=== PATIENT | female | born 1945 | race Caucasian/White ===

== ENCOUNTER 2023-11-21 16:20 | Outpatient (OUT) | payer MEDICARE, BC, SELFPAY ==
[2023-11-21 16:51] LABS: Basophils Percent Auto 0.3 % (0.2-2.0); Eosinophils Percent Auto 0.1 % (0.9-7.0); Hematocrit 37.3 % (36.0-48.0); Hemoglobin 13.9 g/dL (12.0-16.0); Immature Granulocytes Abs Auto 0.05 10^3/uL (0.00-0.03); Immature Granulocytes Pct Auto 0.5 % (0.0-0.5); Lymphocytes Absolute Auto 1.1 10^3/uL (1.2-3.8); Lymphocytes Percent Auto 11.2 % (20.5-60.0); Mean Corpuscular HGB Conc 37.3 g/dL (29.9-35.2); Mean Corpuscular Hemoglobin 30.6 pg (26.7-34.0); Mean Corpuscular Volume 82.2 fL (81.0-99.0); Mean Platelet Volume 8.7 fL (9.5-13.5); Monocytes Absolute Auto 0.8 10^3/uL (0.3-0.8); Monocytes Percent Auto 8.3 % (1.7-12.0); Neutrophils Absolute Auto 7.6 10^3/uL (1.4-6.5); Neutrophils Percent Auto 79.6 % (43.0-75.0); Platelet Count 378 10^3/uL (150-450); Red Blood Count 4.54 10^6/uL (4.20-5.40); Red Cell Distribution Width 11.4 % (11.0-15.0); White Blood Count 9.5 10^3/uL (4.0-11.0)
[2023-11-22 10:18] LABS: Alanine Aminotransferase 30 U/L (14-59); Albumin Globulin Ratio 1.1; Albumin Level 4.3 g/dL (3.4-5.0); Alkaline Phosphatase 92 U/L (46-116); Anion Gap 16.7; Aspartate Amino Transferase 22 U/L (15-37); BUN Creatinine Ratio 10.3; Bilirubin Total 0.6 mg/dL (0.2-1.0); Calcium 9.5 mg/dL (8.5-10.1); Carbon Dioxide 24.5 mmol/L (21.0-32.0); Chloride 88 mmol/L (98-107); Estimated GFR (African America 46 (>=60); Estimated GFR (Non-African Ame 38 (>=60); Globulin 3.8 g/dL; Glucose 161 mg/dL (74-106); Potassium 3.2 mmol/L (3.5-5.1); Sodium 126 mmol/L (136-145); Total Protein 8.1 g/dL (6.4-8.2)
== END 2023-11-21 16:21 | disposition home or self-care (01) ==
PROVIDERS: PCP Internal Medicine; Visit Provider Physician Assistant
DX: R42 Dizziness and giddiness (principal)
CPT/HCPCS: 36415; 80053; 85025

== ENCOUNTER 2024-04-22 09:48 | Outpatient (OUT) | payer MEDICARE, BC, SELFPAY ==
--- NOTE | 2024-04-22 09:50 | XR_ITS ---
[address] [address] Patient Name: MICHEAL WILKERSON MRN: [id number] date: 1945 Sex: F Assigned Patient Location: [facility] Current Patient Location: Accession/Order Number: [id number] Exam Date: 04/22/2024 10:00 Report Date: 04/23/2024 11:31 At the request of: BROOKLYNN SORIA Procedure: XR DEXA axial skeleton EXAMINATION: XR DEXA axial skeleton HISTORY: Osteopenia, Estrogen Deficiency COMPARISON: DEXA bone densitometry 11/02/2016 TECHNIQUE: Dual-energy X-ray absorptiometry (DXA) was performed. FINDINGS: SPINE ANALYSIS: Average bone mineral density is 1.182 g/cm2. T-score (standard deviation relative to young adult mean): 0.0 . +9.1% change since prior study. HIP ANALYSIS: Lowest bone mineral density is within the right femoral neck, 0.680 g/cm2. T-score (standard deviation relative to young adult mean): -2.6 . -2.3% change since prior study. XR/XR DEXA axial skeleton IMPRESSION: World Health Organization Classification: Osteoporosis - High Fracture Risk FRAX: Cannot be calculated. Pharmacologic treatment recommendations * No uniform recommendation applies to all patients. Management plans must be individualized. * Consider initiating pharmacologic treatment in postmenopausal women and men >= 50 years of age who have the following: Primary fracture prevention: * T-score <= - 2.5 at the femoral neck, total hip, lumbar spine, 33% radius (some uncertainty with existing data) by DXA. * Low bone mass (osteopenia: T-score between - 1.0 and - 2.5) at the femoral neck or total hip by DXA with a 10-year hip fracture risk >= 3% or a 10-year major osteoporosis-related fracture risk >= 20% (i.e., clinical vertebral, hip, forearm, or proximal humerus) based on the [place]-adapted FRAXregistered model. Secondary fracture prevention: * Fracture of the hip or vertebra regardless of BMD [4, 5]. * Fracture of proximal humerus, pelvis, or distal forearm in persons with low bone mass (osteopenia: T-score between - 1.0 and - 2.5). The decision to treat should be individualized in persons with a fracture of the proximal humerus, pelvis, or distal forearm who do not have osteopenia or low BMD [12, 13]. Derick MS, Lucero SL, Julio KL, Janet EM, Jason KG, AJ, Cm ES. The clinician's guide to prevention and treatment of osteoporosis. Osteoporos Int. 2021;33(10):4308-1343. doi: 10.1007/g05289-706-90972-e. Epub 2021Jul 15. Erratum in: Osteoporos Int. 2021Oct 14;: PMID: [id number]; PMCID: [id number]. Electronically authenticated by: BRIDGETTE EVANGELISTA Date: 04/23/2024 11:31
--- OUTSIDE RECORDS SUMMARY | 2024-04-22 09:52 | XMS_ITS | CCD ---
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 #### [facility] [address] [employer] Treatment Plant Operator: Marian Paige [facility] METABOL[facility] 04-18-2024 Albumin [Mass/Vol] 4.2 g/dL Normal 3.6-5.1 [facility] Comment on above: Performed By: #### 1 7306, 496, 7600 #### [facility] [address], [address] [place] [address] [employer] Plant Operator: Parag Minor MD #### [id number], 34546 #### [facility] [phone] [employer] Plant Operator: Marian Paige Albumin/Globulin [Mass ratio] 1.5 {ratio} Normal 1.0-2.5 [facility] Comment on above: Performed By: #### 1 7306, 496, 7600 #### [facility] [address], [address] [place] [address] [employer] Plant Operator: Parag Minor MD #### [id number], 95816 #### [facility] [address] [employer] Treatment Plant Operator: Marian Paige ALP [Catalytic activity/Vol] 57 U/L Normal 37-153 [facility] Comment on above: Performed By: #### 1 7306, 496, 1600 #### [facility] [address], [address] [place] [address] [employer] Treatment Plant Operator: Parag Minor MD #### [id number], 83397 #### [facility] [address] [employer] Treatment Plant Operator: Marian Ballard Flati ALT [Catalytic activity/Vol] 12 U/L Normal 6-29 [facility] Comment on above: Performed By: #### 1 7306, 496, 0700 #### [facility] [address], [address] [place], [place] [phone] [employer] Plant Operator: Parag Minor MD #### 6399, 36324 #### [facility] Waste [employer] Treatment Plant Operator: Marian Scotti AST [Catalytic activity/Vol] 23 U/L Normal 10-35 [facility] Comment on above: Performed By: #### 1 7306, 496, 2719 #### [facility] [address], [address] [place] [address] [employer] Treatment Plant Operator: Parag Minor MD #### 6399, 46071 #### [facility] Waste Water Treatment Plant Operator: Marian Ballard Flati Bilirubin [Mass/Vol] 0.5 mg/dL Normal 0.2-1.2 [facility] Comment on above: Performed By: #### 1 7306, 496, 0993 #### [facility] [address], [address] [place] [address] [employer] Treatment Plant Operator: Parag Minor MD #### [id number], 46129 #### [place] [address] [employer] Operator: Marian Ballard Flati Calcium [Mass/Vol] 9.2 mg/dL Normal 8.6-10.4 [facility] Comment on above: Performed By: #### 1 7306, 496, 5929 #### [facility] [address], [address] [place] [address] [employer] Treatment Plant Operator: Parag Minor MD #### 6399, 31982 #### [facility] [address] [employer] Operator: Marian Ballard Flati Chloride [Moles/Vol] 99 mmol/L Normal 98-110 [facility] Comment on above: Performed By: #### 1 7306, 496, 6500 #### [facility] [address], [address] [place] [address] [employer] Treatment Plant Operator: Parag Minor MD #### 6399, 28813 #### [facility] [phone] [employer] Operator: Marian Scotti CO2 [Moles/Vol] 30 mmol/L Normal 20-32 [facility] Comment on above: Performed By: #### 1 7306, 498, 2314 #### [facility] [address], [address] [place] [address] [employer] Operator: Parag Minor MD #### 6399, 87540 #### [facility] [address] [employer] Operator: Marian Paige Creatinine [Mass/Vol] 1.15 mg/dL High 0.60-1.00 [facility] Comment on above: Performed By: #### 1 7306, 496, 9794 #### [facility] [address], [address] [place] [address] [employer] Operator: Parag Minor MD #### 6399, 64293 #### [facility] [address] [place] [address] [employer] Operator: Marian Paige GFR/1.73 sq M.predicted among non-blacks MDRD (S/P/Bld) [Vol rate/Area] 49 mL/min/{1.73_m2} Low > OR = 60 [facility] Comment on above: Performed By: #### 1 7306, 496, 2799 #### [facility] [address], [address] [place] [address] [employer] Operator: Parag Minor MD #### 6399, 84021 #### [place] [address] [employer] Operator: Marian Scotti Globulin (S) [Mass/Vol] 2.8 g/dL Normal 1.9-3.7 [facility] Comment on above: Performed By: #### 1 7306, 496, 8486 #### [facility] [address], [address] [place] [address] [employer] Operator: Parag Minor MD #### 6399, 08901 #### [place] [address] [employer] Operator: Marian Ballard Flati Glucose [Mass/Vol] 96 mg/dL Normal 65-99 [facility] Comment on above: Result Comment: Fasting reference interval Performed By: #### 1 7306, 496, 7306 #### [facility] [address], [address] [place] [address] [employer] Operator: Parag Minor MD #### 6399, 03049 #### [place] [address] [employer] Operator: Marian Ballard Flati Potassium [Moles/Vol] 5.0 mmol/L Normal 3.5-5.3 [facility] Comment on above: Performed By: #### 1 7306, 496, 4735 #### [facility] [address] [place] [address], [address] [place] [address] [employer] Operator: Parag Minor MD #### 6399, 65813 #### [facility] [address] [employer] Operator: Marian Ballard Flati Protein [Mass/Vol] 7.0 g/dL Normal 6.1-8.1 [facility] Comment on above: Performed By: #### 1 7306, 496, 7600 #### [facility] [address], [address] [place] [address] [employer] Plant Operator: Parag Minor MD #### 6399, 59915 #### [facility] [address] [place], [place] [phone] [employer] Operator: Marian Paige Sodium [Moles/Vol] 134 mmol/L Low 135-146 [facility] Comment on above: Performed By: #### 1 7306, 496, 3000 #### [facility] [address], [address] [place] [address] [employer] Operator: Parag Minor MD #### 6399, 36908 #### [facility] [address] [place] [address] [employer] Operator: Marian Paige Urea nitrogen [Mass/Vol] 14 mg/dL Normal 7-25 [facility] Comment on above: Performed By: #### 1 7306, 496, 7600 #### [facility] [address], [address] [place] [address] [employer] Operator: Parag Minor MD #### [id number], 41846 #### [facility] [address] [place], [place] [address] [employer] Operator: Marian Paige Urea nitrogen/Creatinine [Mass ratio] 12 mg/mg Normal 6-22 [facility] Comment on above: Performed By: #### 1 7306, 496, 7600 #### [facility] [address], [address] [place] [address] [employer] Operator: Parag Minor MD #### 6399, 48201 #### [facility] [address] [place] [phone] [employer] Operator: Marian Paige HEMOGLOBIN A1con 04-18-2024 HEMOGLOBIN A1c 5.6 % of total Hgb Normal <5.7 [facility] Comment on above: Result Comment: For the purpose of screening for the presence of diabetes: <5.7% Consistent with the absence of diabetes 5.7-6.4% Consistent with increased risk for diabetes (prediabetes) > or =6.5% Consistent with diabetes This assay result is consistent with a decreased risk of diabetes. Currently, no consensus exists regarding use of hemoglobin A1c for diagnosis of diabetes in children. According to [place] Diabetes Association (ADA) guidelines, hemoglobin A1c <7.0% represents optimal control in non- diabetic patients. Different metrics may apply to specific patient populations. Standards of Medical Care in Diabetes(ADA). Performed By: #### 1 7306, 496, 7600 #### [facility] [address], [address] [place] [address] [employer] Operator: Parag Minor MD #### 6399, 18551 #### [facility] [address] [place] [address] [employer] Operator: Marian Paige LIPID PANEL, STANDARD 03-22 0-202 Cholesterol [Mass/Vol] 131 mg/dL Normal <200 [facility] Comment on above: Order Comment: FASTI NG:YES FASTING: YES Performed By: #### 1 7306, 496, 2390 #### [facility] [address], [address] [place] [address] [employer] Operator: Parag Minor MD #### 6399, 05638 #### [facility] [address] [place] [address] [employer] Operator: Marian Paige Cholesterol in HDL [Mass/Vol] 45 mg/dL Low > OR = 50 [facility] Comment on above: Order Comment: FASTI NG:YES FASTING: YES Performed By: #### 1 7306, 497, 0820 #### [facility] [address], [address] [place] [address] [employer] Operator: Parag Minor MD #### 6399, 83326 #### [facility] [address] [place] [address] [employer] Operator: Marian Paige Cholesterol in LDL [Mass/Vol] 64 mg/dL Normal [facility] Comment on above: Order Comment: FASTI NG:YES FASTING: YES Result Comment: Refe rence range: <100 Desirable range <100 mg/dL for primary prevention; <70 mg/dL for patients with CHD or diabetic patients with > or = 2 CHD risk factors. LDL-C is now calculated using the Mitul calculation, which is a validated novel method providing better accuracy than the Friedewald equation in the estimation of LDL-C. Arnie JADE et al. ARABELLA. 2013;310(19): 1505-5025 (http://education.[employer]onder [employer]/faq/RLK693) Performed By: #### 1 7306, 496, 7600 #### [facility] [address], [address] [place] [address] [employer] Operator: Parag Minor MD #### 6399, 22304 #### [facility] [address] [place] [address] [employer] Operator: Marian Paige Cholesterol.total/C holesterol in HDL [Mass ratio] 2.9 {ratio} Normal <5.0 [facility] Comment on above: Order Comment: FASTI NG:YES FASTING: YES Performed By: #### 1 7306, 496, 9160 #### [facility] [address], [address] [place] [address] [employer] Operator: Parag Minor MD #### 6399, 93573 #### [facility] [address] [place] [address] [employer] Operator: Marian Paige NON HDL CHOLESTEROL 86 mg/dL (calc) Normal <130 [facility] Comment on above: Order Comment: FASTI NG:YES FASTING: YES Result Comment: For patients with diabetes plus 1 major ASCVD risk factor, treating to a non-HDL-C goal of <100 mg/dL (LDL-C of <70 mg/dL) is considered a therapeutic option. Performed By: #### 1 7306, 496, 7690 #### [facility] [address], [address] [place] [address] [employer] Operator: Parag Minor MD #### 6399, 48907 #### [facility] [address] [place], [place] [phone] [employer] Operator: Marian Paige Triglyceride [Mass/Vol] 138 mg/dL Normal <150 [facility] Comment on above: Order Comment: FASTI NG:YES FASTING: YES Performed By: #### 1 7306, 496, 7600 #### [facility] [address], [address] [place] [address] [employer] Operator: Parag Minor MD #### 6399, 72698 #### [facility] [address] [place] [address] [employer] Operator: Marian Paige TSH W/REFLEX TO FT4on 2024 TSH W/REFLEX TO FT4 0.59 mIU/L Normal 0.40-4.50 [facility] Comment on above: Performed By: #### 1 7306, 496, 0740 #### [facility] [address], [address] [place] [address] [employer] Operator: Parag Minor MD #### 6399, 24777 #### [facility] [address] [place] [address] [employer] Operator: Marian Paige VITAMIN D,25-OH,TOTAL,IAon 0 04-18-2024 VITAMIN D,25-OH,TOTAL,IA 71 ng/mL Normal 30-100 [facility] Comment on above: Result Comment: Kayla min D Status 25-OH Vitamin D: Deficiency: <20 ng/mL Insufficiency: 20 - 29 ng/mL Optimal: > or = 30 ng/mL For 25-OH Vitamin D testing on patients on D2-supplementation and patients for whom quantitation of D2 and D3 fractions is required, the QuestAssureD(TM) 25-OH VIT D, (D2,D3), LC/MS/MS is recommended: order code 69013 (patients >2yrs). See Note 1 Note 1 For additional information, please refer to http://education.Scribz.Softdesk/faq/UWL852 (This link is being provided for informational/ educational purposes only.) Performed By: #### 1 7306, 496, 1270 #### [facility] [place] [address], [address] [place] [address] [employer] Operator: Parag Minor MD #### 6399, 51056 #### [facility] [address] [place] [address] [employer] Operator: Marian Paige XR Knee - left 1 or 2 Viewso n 01-13-2024 Imaging Result: X-rays performed January 09, 2024 Standing AP and LAT of left knee showed surgical position and alignment of prosthetic components without evidence of loosening or wear to the femoral, tibial, or patellar components. The alignment appeared to be anatomic. There was no evidence of accelerated or asymmetric wear to the patellar button or tibial tray. There was no evidence of fracture and/or dislocation. Impression: Stable LT total knee replacement. Carlitos Laird APRN-PLATE MAKER [facility] XR Knee - left 1 or 2 ViewsO rdered By: Shane Ledesma on 01-13-2024 [facility] Work Phone: Urine Cultureon 01-12-2024 Bacteria identified Cx Nom (U) Urine Culture Results >100,000 col/ml Mixed Bacterial Skin Contaminants 2 Days PERFORMED BY: [place] [address] PATHOLOGIST MOLDING MACHINE OPERATOR JENNIFER JOHNSON M.D. Normal [facility] Comment on above: Performed By: #### C UU #### [address] XR Knee - left 1 or 2 Viewso n 01-09-2024 Radiology Study observation (narrative) [facility] ALL CBC WITH AUTO DIFFon BASOPHILS ABSOLUTE AUTO 0.0 [facility] Basophils/100 WBC (Bld) 0.3 % 0.2 - 2.0 % [facility] Eosinophils/100 WBC (Bld) 0.1 % Low 0.9 - 7.0 % [facility] Erythrocyte distribution width (RBC) [Ratio] 11.4 % 11.0 - 15.0 % [facility] Hematocrit (Bld) [Volume fraction] 37.3 % 36.0 - 48.0 % [facility] Hemoglobin (Bld) [Mass/Vol] 13.9 g/dL 12.0 - 16.0 g/dL [facility] IMMATURE GRANULOCYTES ABS AUTO 0.05 High [facility] Immature granulocytes/100 WBC (Bld) 0.5 % 0.0 - 0.5 % [facility] Interpretation and review of laboratory results Abnormal [facility] LYMPHOC[facility] ABSOLUTE AUTO 1.1 Low [facility] Lymphocytes/100 WBC (Bld) 11.2 % Low 20.5 - 60.0 % [facility] MCH (RBC) [Entitic mass] 30.6 pg 26.7 - 34.0 pg [facility] MCHC (RBC) [Mass/Vol] 37.3 g/dL High 29.9 - 35.2 g/dL [facility] MCV (RBC) [Entitic vol] 82.2 fL 81.0 - 99.0 fL [facility] MONOCYTES ABSOLUTE AUTO 0.8 [facility] Monocytes/100 WBC (Bld) 8.3 % 1.7 - 12.0 % [facility] NEUTROPHILS ABSOLUTE AUTO 7.6 High [facility] Neutrophils/100 WBC (Bld) 79.6 % High 43.0 - 75.0 % [facility] Platelet mean volume (Bld) [Entitic vol] 8.7 fL Low 9.5 - 13.5 fL [facility] EO # 0.0 [facility]T 378 [facility] RBC 4.54 [facility] TB[facility] WBC 9.5 [facility] Influenza virus B Ag [Presen ce] in Upper respiratory specimen by Rapid immunoassayon 11-10-2023 FLUBV Ag IA.rapid Ql (Nph) Negative [facility] No Panel Informationon 11-09 Influenza Type A (Rapid) Negative [facility] POC SARS CoV-2 Antigen Positive [facility] COVID + FLU Quick Testingon 07-20-2022 SARS-CoV-2 (COVID-19) RNA JOMAR+probe Ql (Unsp spec) Negative [facility] Other COVID + FLU Quick Testing Negative [facility] Other XR Bone Density (DEXA)on XR Bone Density (DEXA) EXAM: Dual Femur Bone Density FINDINGS: Dual Femur bone density obtained with a [employer] whole body system: [facility] Total(g/cm2)(%)T-Scor e(%)Z-Score Mean0.74314-2.495-0.3 Impression: The mean BMD and corresponding T-score indicated above indicate Low Bone Mass (Osteopenia) and places the patient at a mild to moderate increased risk for fracture. There may be a future risk of developing osteoporosis. Findings are borderline osteoporosis. EXAM: AP Lumbar Bone Density FINDINGS: AP Spine bone density obtained with a [employer] whole body system: [facility]-Matched Total(g/cm2)(%)T-Scor e(%)Z-Score L1-[id number]. 7 Impression: The mean BMD and corresponding T-score indicated above indicate Low Bone Mass (Osteopenia) and places the patient at a mild to moderate increased risk for fracture. There may be a future risk of developing osteoporosis. Comment: The T-score is the primary focus of the interpretation of a patient???s bone mineral density measurement. The T-score is the number of standard deviations an individual is above or below the mean value for a young female having normal bone mass. The WHO defines osteoporosis based on the T-score value??? +1.0 to ???0.9: Normal bone mass -1.0 to -2.5: Osteopenia and thus may be at future risk of fracture -2.6 to ???5: Osteoporosis and ???at significantly increased risk of fracture??? A Z-Score of -2.0 or lower is defined as ???below the expected range for age??? and a Z-Score above -2.0 is ???within the expected range for age.??? Osteoporosis cannot be diagnosed in men under the age of 50 on the basis of BMD alone. Per 2019 ISCD guidelines, Z-Scores (not T-Scores) are preferred when reporting data in premenopausal females and males less than 50 years of age. Report reported and signed by Sherman Stein on 03/22/2022 0955 Normal [facility] MG MAMM SCREEN 3D SHYANN CADon 03-11-2021 MG MAMM SCREEN 3D SHYANN CAD Patient: CHELSY GRAVES Exam Date: 03/11/2021 : 1945 Gender:F Ordering : DR DAVID BOLES M.D. Admission #: [id number] Family : Order #: [id number] CLICK HERE TO VIEW EXAM RADIOLOGY REPORT PROCEDURE: MAMMOGRAM SCREENING 3D BILATERAL CAD COMPARISON: MG MAMM SCREEN SHYANN W CAD, 11/28/2018. MG MAMM SCREEN SHYANN W CAD, 03/10/2020. INDICATIONS: Screening mammography Calculator Name NCI Breast Cancer Risk Assessment Tool 5 Year Breast Cancer Risk 5.50% Lifetime Breast Cancer Risk 11.60% Personal Breast Cancer No Personal Ovarian Cancer No Treatments None Family Cancers Father with bladder cancer at age 60; Sister with breast cancer at age 65. LOCATION: [facility] BREAST COMPOSITION: Heterogeneously dense,which may obscure small masses. FINDINGS: DIAGNOSTIC CATEGORY 2--BENIGN FINDING: RIGHT BREAST: No significant suspicious finding. No significant change has occurred. LEFT BREAST: No significant suspicious finding. Scattered benign-appearing calcifications are present. No significant change has occurred. RECOMMENDATIONS: ROUTINE MAMMOGRAM AND CLINICAL EVALUATION IN 12 MONTHS. PLEASE NOTE: A NORMAL MAMMOGRAM DOES NOT EXCLUDE THE POSSIBILITY OF BREAST CANCER. A CLINICALLY SUSPICIOUS PALPABLE LUMP SHOULD BE BIOPSIED. Dictated by: Bridgette Del Angel M.D. on 03/11/2021 at 15:23 Approved by: Bridgette Del Angel M.D. on 03/11/2021 at 15:27 Normal [facility] Covid-19 PCR (CVDTB)on 12-18 SARS-CoV-2 (COVID-19) RNA JOMAR+probe Ql (Unsp spec) Not detected Normal NOT DETECTED [facility] Comment on above: Result Comment: This test is not yet approved or cleared by the [place] FDA. When there are no FDA-approved or cleared tests available, and other criteria are met, FDA can make tests available under an emergency access mechanism called an Emergency Use Authorization (EUA). The EUA for this test is supported by the [place] of Health and Human Service's (HHS's) declaration that circumstances exist to justify the emergency use of in vitro diagnostics for the detection and/or diagnosis of the virus that causes COVID-19. This EUA will remain in effect (meaning this test can be used) for the duration of the COVID-19 declaration justifying emergency of IVDs, unless it is terminated or revoked by FDA (after which the test may no longer be used). When diagnostic testing is negative, the possibility of a false negative should be considered in the context of a patient's recent exposures and the presence of clinical signs and symptoms consistent with SARS-CoV-2. Performed By: #### C VDTB #### [facility] [address] [place], [place] [address] Dr. Janny Ball APTRivera 04-30-2020 aPTT Coag (Bld) [Time] 28.0 s Normal 23.9-33.8 [facility] Comment on above: Result Comment: IV Heparin Therapy Range: 62.0-94.0 Performed By: #### P T, PTT, TROPI, MG, LIP, CMPX, CDP #### [facility] [address] [place] [address] Graphics Manager: José Luis Nelson MD aPTT Coag (Bld) [Time] 28.0 s [employer] Phone: Comment on above: IV Heparin Therapy Range: 62.0-94.0 CBC Auto Differentialon 04-20 Basophils (Bld) [#/Vol] 0.04 10*3/uL [employer] Phone: Basophils/100 WBC (Bld) 1 % 0 - 2 % [employer] Phone: Differential Type NOT REPORTED [facility] [employer] Phone: Eosinophils (Bld) [#/Vol] 10*3/uL [employer] Phone: Eosinophils/100 WBC (Bld) 0 % Low 1 - 4 % [employer] Phone: Erythrocyte distribution width (RBC) [Ratio] 11.5 % Low 11.8 - 14.4 % [employer] Phone: Hematocrit (Bld) [Volume fraction] 38.8 % 36.3 - 47.1 % [employer] Phone: Hemoglobin (Bld) [Mass/Vol] 13.3 g/dL 11.9 - 15.1 g/dL [employer] Phone: Immature granulocytes (Bld) [#/Vol] 10*3/uL [employer] Phone: Immature granulocytes (Bld) [#/Vol] 0 % 0 [employer] Phone: Interpretation and review of laboratory results Abnormal [employer] Phone: Lymphocytes (Bld) [#/Vol] 0.82 10*3/uL Low [employer] Phone: Lymphocytes/100 WBC (Bld) 13 % Low 24 - 43 % [employer] Phone: MCH (RBC) [Entitic mass] 29.1 pg 25.2 - 33.5 pg [employer] Phone: MCHC (RBC) [Mass/Vol] 34.3 g/dL 28.4 - 34.8 g/dL [employer] Phone: MCV (RBC) [Entitic vol] 84.9 fL 82.6 - 102.9 fL [employer] Phone: Monocytes (Bld) [#/Vol] 0.51 10*3/uL [employer] Phone: Monocytes/100 WBC (Bld) 8 % 3 - 12 % [employer] Phone: Platelet mean volume (Bld) [Entitic vol] 8.9 fL 8.1 - 13.5 fL [employer] Phone: Platelets (Bld) [#/Vol] 272 10*3/uL [employer] Phone: Platelets (Bld) [#/Vol] NOT REPORTED [employer] Phone: RBC (Bld) [#/Vol] 4.57 10*6/uL 3.95 - 5.1 1 m/uL [employer] Phone: RBC morphology finding Nom (Bld) NOT REPORTED [employer] Work Phone: Segmented neutrophils/100 WBC (Bld) 78 % High 36 - 65 % [employer] Work Phone: Segs [employer] 5[employer] [facility] Work Phone: WBC (Bld) [#/Vol] 6.4 10*3/uL [employer] Work Phone: WBC (Bld) [#/Vol] 0.0 10*3/uL 0.0 per 10 0 WBC [employer] Work Phone: WBC Morphology NOT REPORTED [facility] Work Phone: CBC with Diffon 04-30-2020 Abs. Basophil 0.04 k/uL Normal 0.00-0.20 [facility] Comment on above: Performed By: #### P T, PTT, TROPI, MG, LIP, CMPX, CDP #### [facility] [address] [place] [address] [place] [address] Graphics Manager: José Luis Nelson MD Abs.Imm.Granulocyte <0.03 Normal 0.00-0.30 [facility] Comment on above: Performed By: #### P T, PTT, TROPI, MG, LIP, CMPX, CDP #### [address] [place] [address] Graphics Manager: José Luis Nelson MD Abs.Neutrophil (Seg) 5.01 k/uL Normal 1.50-8.10 [facility] Comment on above: Performed By: #### P T, PTT, TROPI, MG, LIP, CMPX, CDP #### [address] [place] [address] Graphics Manager: José Luis Nelson MD Basophils/100 WBC (Bld) 1 % Normal 0-2 [facility] Comment on above: Performed By: #### P T, PTT, TROPI, MG, LIP, CMPX, CDP #### [address] [place] [address] Graphics Manager: José Luis Nelson MD Eosinophils (Bld) [#/Vol] 10*3/uL Normal 0.00-0.44 [facility] Comment on above: Performed By: #### P T, PTT, TROPI, MG, LIP, CMPX, CDP #### [address] [place], [place] [id number] Graphics Manager: José Luis Nelson MD Eosinophils/100 WBC (Bld) 0 % Low 1-4 [facility] Comment on above: Performed By: #### P T, PTT, TROPI, MG, LIP, CMPX, CDP #### [address] [place], [facility] Graphics Manager: José Luis Nelson MD Erythrocyte distribution width (RBC) [Ratio] 11.5 % Low 11.8-14.4 [facility] Comment on above: Performed By: #### P T, PTT, TROPI, MG, LIP, CMPX, CDP #### [address] [place] [address] Graphics Manager: José Luis Nelson MD Hematocrit (Bld) [Volume fraction] 38.8 % Normal 36.3-47.1 [facility] Comment on above: Performed By: #### P T, PTT, TROPI, MG, LIP, CMPX, CDP #### [address] [place], [place] [id number] Graphics Manager: José Luis Nelson MD Hemoglobin (Bld) [Mass/Vol] 13.3 g/dL Normal 11.9-15.1 [facility] Comment on above: Performed By: #### P T, PTT, TROPI, MG, LIP, CMPX, CDP #### [address] [place] [address] Graphics Manager: José Luis Nelson MD Immature granulocytes (Bld) [#/Vol] 0 % Normal 0 [facility] Comment on above: Performed By: #### P T, PTT, TROPI, MG, LIP, CMPX, CDP #### [facility] [address] [place] [address] Graphics Manager: José Luis Nelson MD Lymphocytes (Bld) [#/Vol] 0.82 10*3/uL Low 1.10-3.70 [facility] Comment on above: Performed By: #### P T, PTT, TROPI, MG, LIP, CMPX, CDP #### [facility] [address] [address] Graphics Manager: José Luis Nelson MD Lymphocytes/100 WBC (Bld) 13 % Low 24-43 [facility] Comment on above: Performed By: #### P T, PTT, TROPI, MG, LIP, CMPX, CDP #### [address] [place] [address] Graphics Manager: José Luis Nelson MD MCH (RBC) [Entitic mass] 29.1 pg Normal 25.2-33.5 [facility] Comment on above: Performed By: #### P T, PTT, TROPI, MG, LIP, CMPX, CDP #### [facility] [address] [place] [address] [place] [address] Graphics Manager: José Luis Nelson MD MCHC (RBC) [Mass/Vol] 34.3 g/dL Normal 28.4-34.8 [facility] Comment on above: Performed By: #### P T, PTT, TROPI, MG, LIP, CMPX, CDP #### [facility] [address] [place] [address] [place] [address] Graphics Manager: José Luis Nelson MD MCV (RBC) [Entitic vol] 84.9 fL Normal 82.6-102.9 [facility] Comment on above: Performed By: #### P T, PTT, TROPI, MG, LIP, CMPX, CDP #### [facility] [address] [address] Graphics Manager: José Luis Nelson MD Monocytes (Bld) [#/Vol] 0.51 10*3/uL Normal 0.10-1.20 [facility] Comment on above: Performed By: #### P T, PTT, TROPI, MG, LIP, CMPX, CDP #### [facility] [address] [place], [place] [id number] Graphics Manager: José Luis Nelson MD Monocytes/100 WBC (Bld) 8 % Normal 3-12 [facility] Comment on above: Performed By: #### P T, PTT, TROPI, MG, LIP, CMPX, CDP #### [address] [place] [address] Graphics Manager: José Luis Nelson MD Neutrophil (Seg) 78 % High 36-65 [facility] Comment on above: Performed By: #### P T, PTT, TROPI, MG, LIP, CMPX, CDP #### [address] [place] [address] Graphics Manager: José Luis Nelson MD NRBC Automated 0.0 per 100 WBC Normal 0.0 [facility] Comment on above: Performed By: #### P T, PTT, TROPI, MG, LIP, CMPX, CDP #### [address] [place] [address] Graphics Manager: José Luis Nelson MD Platelet mean volume (Bld)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 Work Phone: [facility] 12-08-2016 pneumococcal polysaccharide vaccine, 23 valent Fern Hemmer PA Work Phone: [facility] 12-15-2015 influenza, injectabl e, quadrivalent, contains preservative Fern Hemmer PA Work Phone: [facility] 12-18-2014 seasonal influenza, intradermal, preservative free Fern Hemmer PA Work Phone: [facility] 10-20-2014 pneumococcal conjuga te vaccine, 13 valent Fern Hemmer PA Work Phone: [facility] 10-05-2013 zoster vaccine, live Fern mccracken PA Work Phone: [facility] 06-26-2013 pneumococcal polysaccharide vaccine, 23 valent Fern Hemmer PA Work Phone: [facility] 12-24-2012 seasonal influenza, intradermal, preservative free Fern Hemmer PA Work Phone: [facility] 08-31-2010 tetanus toxoid, redu georgiana diphtheria toxoid, and acellular pertussis vaccine, adsorbed Fern Hemmer PA Work Phone: [facility] Payers Date Payer Category Payer Unknown [id number] 2017 Unknown [id number] 2014 Medicare [id number] 2010 [facility] er [id number] 2010 Unknown BCBS BCBS [id number] 2010-Present [phone] [address] [place] [address] [id number] 1959 Medicare [id number] 1959 Unknown [id number] 1945 Unknown [id number] .173 1945 Unknown [id number] [id number] .593 1945 Unknown [id number] [id number] .593 1945 Unknown [id number] [id number] .593 1945 Unknown [id number] 2.16.840.1.193838.3.579.2 .1259 1945 Unknown [id number] [id number] .1259 1945 Unknown [id number] [id number] .1259 1945 Unknown [id number] [id number] .1259 1945 Unknown [id number] [id number] .1259 1945 Unknown [id number] [id number] .1259 1945 Unknown [id number] [id number] .1259 1945 Unknown [id number] [id number] .1259 1945 Unknown [id number] [id number] .1259 1945 Unknown [id number] [id number] .1259 Medicare Medicare Nonpatient [id number] Self-pay Self Pay [id number] Social History Date Type Detail Facility Start: 04-30-2020 End: 03-17-2023 Tobacco smoking status NHIS Former smoker [facility] Start: 04-30-2020 End: 03-17-2023 Tobacco use and exposure Never used [employer] Phone: Start: 1945 Sex Assigned At Not on file [facility] [employer] Phone: Exposure to SARS-CoV -2 (event) Not sure [employer] Phone: Start: 03-17-2023 End: 12-06-2023 Sex Assigned At [facility] Other Start: 1945 Sex Assigned At Female F [facility] History of tobacco use Current smoker [facility] History of tobacco use Cigarette Smoker [facility] Start: 03-17-2023 End: 11-21-2023 Cigarettes smoked current (pack per day) - Reported 0.5 [facility] Start: 11-21-2023 End: 12-06-2023 Alcoholic beverage intake Lifetime non-drinker (finding) [facility] Clinical Notes 01-01-2021 to 03-04-2024 LORETA Emery - 03/04/2024 10:30 AM Ab Laird NP - 01/09/2024 11:00 AM EDTTelephone Encounter - David Boles MD - 12/29/2023 11:02 AM EDTDavid Boles MD - 12/06/2023 9:15 AM EDT Note Date & Type Note Facility 03-04-2024 History of Presen t illness Narrative Images from the original note were not included. Subjective Patient ID: Chelsy Graves is a 78 y.o. female who presents for Medicare Annual Wellness Visit Subsequent. HPI Denies complaints at this time. Medicare Wellness Over the past 2 weeks, how often have you been bothered by any of the following problems? Little interest or pleasure in doing things: Not at all Feeling down, depressed, or hopeless: Not at all Patient Health Questionnaire-2 Score: 0 Over the past 2 weeks, how often have you been bothered by any of the following problems? Trouble falling or staying asleep, or sleeping too much: Not at all Feeling tired or having little energy: Not at all Poor appetite or overeating: Not at all Feeling bad about yourself - or that you are a failure or have let yourself or your family down: Not at all Trouble concentrating on things, such as reading the newspaper or watching television: Not at all Moving or speaking so slowly that other people could have noticed? Or the opposite - being so fidgety or restless that you have been moving around a lot more than usual.: Not at all Thoughts that you would be better off or hurting yourself in some way: Not at all Patient Health Questionnaire-9 Score: 0 Bone Fall Risk History of Falling, Immediate or Within 3 Months: No Health Risk Assessment Form Do you need help eating, bathing, using the toilet, dressing, or getting around your home?: No Can you prepare your own meals?: Yes Can you do your own housework without help?: Yes Can you shop for groceries or clothes without help?: Yes Do you exercise for about 20 minutes 3 or more days a week?: Yes How confident are you that you can control and manage most of your health problems?: Very confident Can you mange your money, credit cards and accounts, pay bills and taxes?: Yes Cognitive Screening Three Word Registration: Leader, Season, Table Clock Drawing: Normal Clock - 2 Three Word Recall: All 3 words correct - 3 Total Score (0-5 Points): 5 Pain Assessment Pain Score: 2 Advance Care Planning Do you have a living will?: Yes Do you have a medical power of claims attorney?: Yes Who is your medical power of claims attorney?: kerline gil and josé luis graves Current Outpatient Medications on File Prior to Visit Medication Sig Dispense Refill atorvastatin (Lipitor) 20 MG tablet Take 1 tablet by mouth once daily 100 tablet 3 FLUoxetine (PROzac) 20 MG capsule Take 1 capsule by mouth twice daily 200 capsule 3 levothyroxine (Synthroid, Levoxyl) 100 MCG tablet TAKE 1 TABLET BY MOUTH ONCE DAILY IN THE MORNING BEFORE MEAL(S) 100 tablet 3 losartan (Cozaar) 100 MG tablet TAKE 1 TABLET BY MOUTH IN THE MORNING 100 tablet 3 Potassium Chloride 20 MEQ/15ML (10%) solution Take 15 mL (20 mEq) by mouth Daily 450 mL 11 triamterene-hydrochlorothiazide (Maxzide-25) 37.5-25 MG tablet TAKE 1 TABLET BY MOUTH IN THE MORNING 100 tablet 3 No current facility-administered medications on file prior to visit. I have reviewed and reconciled the history and medication list with the patient today. Allergies Allergen Reactions Oxycodone-Acetaminophen GI intolerance and Hallucinations Acetaminophen Other Reaction(s): halucination Apoaequorin Other Reaction(s): diarrhea Lansoprazole Diarrhea Omeprazole Diarrhea Paroxetine Other Reaction(s): irritable, Unknown Reaction Social History Tobacco Use Smoking status: Former Current packs/day: 0.50 Average packs/day: 0.5 packs/day for 10.0 years (5.0 ttl pk-yrs) Types: Cigarettes Smokeless tobacco: Never Substance Use Topics Alcohol use: Never Family History Problem Relation Name Age of Onset Hypertension Mother Cancer Father Past Medical History: Diagnosis Date Age-related nuclear cataract of both eyes 09/21/2022 Allergic rhinitis Allergies Arthritis COVID-19 03/04/2024 Depression (CMS/HCC) Depressive disorder (CMS/HCC) Disorder of bone and cartilage Diverticulosis of colon Failed total knee replacement (CMS/HCC) 11/17/2021 HTN (hypertension) (CMS/HCC) Hypercholesterolemia (CMS/HCC) Hypothyroidism, unspecified (CMS/HCC) IBS (irritable bowel syndrome) Influenza A Leukocytopenia Mixed hyperlipidemia (CMS/HCC) Osteopenia Peptic ulcer disease Sinus infection Thyroid disease (CMS/HCC) Vitamin D deficiency Xanthelasma of eyelid Past Surgical History: Procedure Laterality Date CATARACT EXTRACTION, BILATERAL 2019 COLONOSCOPY 2010 TOTAL KNEE ARTHROPLASTY Bilateral 2017 TOTAL KNEE ARTHROPLASTY Left 11/17/2021 Visit Vitals BP 110/70 Pulse 60 Resp 17 Wt 145 lb 12.8 oz SpO2 98% BMI 25.42 kg/m Smoking Status Former BSA 1.72 m Review of Systems Constitutional: Negative for chills, fatigue and fever. HENT: Negative for congestion, ear pain, rhinorrhea and sore throat. Eyes: Negative for pain, discharge and visual disturbance. Respiratory: Negative for cough, shortness of breath and wheezing. Cardiovascular: Negative for chest pain, palpitations and leg swelling. Gastrointestinal: Negative for abdominal pain, constipation, diarrhea, nausea and vomiting. Genitourinary: Negative for difficulty urinating, dysuria and frequency. Musculoskeletal: Negative for arthralgias and back pain. Skin: Negative for rash. Neurological: Negative for dizziness and numbness. Psychiatric/Behavioral: Negative for sleep disturbance. The patient is not nervous/anxious. Objective Physical Exam Constitutional: General: She is not in acute distress. Appearance: Normal appearance. She is well-developed. HENT: Head: Normocephalic and atraumatic. Right Ear: Tympanic membrane and ear canal normal. Left Ear: Tympanic membrane and ear canal normal. Nose: Nose normal. Mouth/Throat: Mouth: Mucous membranes are moist. Pharynx: No posterior oropharyngeal erythema. Eyes: General: No scleral icterus. Extraocular Movements: Extraocular movements intact. Conjunctiva/sclera: Conjunctivae normal. Pupils: Pupils are equal, round, and reactive to light. Neck: Vascular: No carotid bruit. Cardiovascular: Rate and Rhythm: Normal rate and regular rhythm. Heart sounds: Normal heart sounds. No murmur heard. Pulmonary: Effort: Pulmonary effort is normal. No respiratory distress. Breath sounds: Normal breath sounds. No wheezing, rhonchi or rales. Abdominal: General: Bowel sounds are normal. There is no distension. Palpations: Abdomen is soft. Tenderness: There is no abdominal tenderness. There is no guarding. Musculoskeletal: General: No swelling or deformity. Normal range of motion. Cervical back: Normal range of motion and neck supple. No tenderness. Skin: General: Skin is warm and dry. Capillary Refill: Capillary refill takes less than 2 seconds. Findings: No rash. Neurological: General: No focal deficit present. Mental Status: She is alert and oriented to person, place, and time. Cranial Nerves: No cranial nerve deficit. Sensory: No sensory deficit. Motor: No weakness. Gait: Gait normal. Deep Tendon Reflexes: Reflexes normal. Psychiatric: Mood and Affect: Mood normal. Behavior: Behavior normal. Thought Content: Thought content normal. Judgment: Judgment normal. Assessment & Plan 1. Medicare annual wellness visit, subsequent (Primary) Reviewed all relevant preventative screenings with the patient in detail. Medicare Wellness form completed and will be scanned into patient's chart. All needed testing was ordered. Will continue with yearly Medicare Wellness exams. - DEXA bone density; Future - CBC and differential - Comprehensive metabolic panel - Hemoglobin A1c - Lipid panel - Vitamin D 25 hydroxy Total - TSH W/REFLEX TO FT4 2. ACP (advance care planning) Patient willing to discuss ACP. Pt has Living Will and DPOA in place. 3. Mixed hyperlipidemia (CMS/HCC) This is a chronic medical condition that is stable since last assessment. No changes in treatment are suggested at this time. Will continue to monitor with routine labs. - CBC and differential - Comprehensive metabolic panel - Lipid panel 4. Other chronic pain OTC Tylenol prn. Well controlled at this time. Will monitor. 5. Hiatal hernia This is a chronic medical condition that is stable since last assessment. No current symptoms at this time. Can consider medication if needed. 6. Atherosclerosis of aorta (CMS/HCC) This is a chronic medical condition that is stable since last assessment. Will continue to work on minimizing risk factors. 7. Essential hypertension (CMS/HCC) Patient's blood pressure is currently well controlled. Continue with current medications and I will continue to monitor. Goal BP remains less than 130/80. - CBC and differential - Comprehensive metabolic panel - Lipid panel 8. 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 of extremities, unspecified extremity (CMS/HCC) This is a chronic medical condition that is stable since last assessment. No changes in treatment are suggested at this time. Continue Atorvastatin daily. - CBC and differential - Comprehensive metabolic panel - Lipid panel 9. Renal artery arteriosclerosis (CMS/HCC) This is a chronic medical condition that is stable since last assessment. No changes in treatment are suggested at this time. Will continue to monitor with routine labs. Stay hydrated. - Comprehensive metabolic panel 10. Diverticulosis of colon This is a chronic medical condition that is stable since last assessment. No changes in treatment are suggested at this time. Pt denies recent flare ups. 11. Gastroesophageal reflux disease without esophagitis This is a chronic medical condition that is stable since last assessment. No changes in treatment are suggested at this time. Pt denies recent flare ups. 12. Irritable bowel syndrome, unspecified type This is a chronic medical condition that is stable since last assessment. No changes in treatment are suggested at this time. Pt denies recent flare ups. 13. Peptic ulcer disease This is a chronic medical condition that is stable since last assessment. No changes in treatment are suggested at this time. Pt denies recent flare ups. 14. Arthropathy The patient is seeing a medical education coordinator for this condition, treatment is deferred to that specialist. Correspondence from that specialist and any available testing were reviewed during today's visit. 15. Presence of both artificial knee joints The patient is seeing a medical education coordinator for this condition, treatment is deferred to that specialist. Correspondence from that specialist and any available testing were reviewed during today's visit. 16. Disorder of bone, unspecified This is a chronic medical condition that is stable since last assessment. No changes in treatment are suggested at this time. Will continue to monitor with routine DEXA scans. - DEXA bone density; Future 17. Myalgia This is a chronic medical condition that is stable since last assessment. No changes in treatment are suggested at this time. Will continue to monitor with routine labs. - Vitamin D 25 hydroxy Total 18. Primary osteoarthritis of both knees The patient is seeing a medical education coordinator for this condition, treatment is deferred to that specialist. Correspondence from that specialist and any available testing were reviewed during today's visit. 19. Primary osteoarthritis of left hip This is a chronic medical condition that is stable since last assessment. No changes in treatment are suggested at this time. 20. Osteopenia of multiple sites This is a chronic medical condition that is stable since last assessment. No changes in treatment are suggested at this time. Will continue to monitor with routine labs and DEXA scans. - DEXA bone density; Future - Vitamin D 25 hydroxy Total 21. Acquired hypothyroidism (CMS/HCC) This is a chronic medical condition that is stable since last assessment. No changes in treatment are suggested at this time. Will continue to monitor with routine labs. - TSH W/REFLEX TO FT4 22. Primary ovarian failure This is a chronic medical condition that is stable since last assessment. No changes in treatment are suggested at this time. Will continue to monitor with routine preventative screenings. 23. Vitamin D deficiency This is a chronic medical condition that is stable since last assessment. No changes in treatment are suggested at this time. Will continue to monitor with routine labs. - Vitamin D 25 hydroxy Total 24. Lymphopenia This is a chronic medical condition that is stable since last assessment. No changes in treatment are suggested at this time. Will continue to monitor with routine labs. - CBC and differential 25. Seasonal allergic rhinitis due to pollen This is a chronic medical condition that is stable since last assessment. No changes in treatment are suggested at this time. 26. Recurrent major depressive disorder, in full remission (CMS/HCC) This is a chronic medical condition that is stable since last assessment. No changes in treatment are suggested at this time. 27. Vitreous opacities of both eyes The patient is seeing a medical education coordinator for this condition, treatment is deferred to that specialist. Correspondence from that specialist and any available testing were reviewed during today's visit. 28. IFG (impaired fasting glucose) This is a chronic medical condition that is stable since last assessment. No changes in treatment are suggested at this time. Will continue to monitor with routine labs. - Comprehensive metabolic panel - Hemoglobin A1c 29. Estrogen deficiency This is a chronic medical condition that is stable since last assessment. No changes in treatment are suggested at this time. Will continue to monitor with routine DEXA scans. - DEXA bone density; Future Follow up in about 1 year (around 03/04/2025) for Medicare Wellness Visit. Fern Soria MSBOO, CHRISTIANC documented in this encounter [facility] 01-09-2024 History of Presen t illness Narrative Images from the original note were not included. Chief Complaint Patient presents with Left Knee - Follow-up HISTORY OF PRESENT ILLNESS: Chelsy Graves is an 78 y.o. @ female. 2 years 2 months s/p LT TKA revision (11/17/21). States she fell about 3 weeks ago on her knee. Has been having some pain anterior. Admits swelling. ALLERGIES: Allergies Allergen Reactions Oxycodone-Acetaminophen GI intolerance and Hallucinations Acetaminophen Other Reaction(s): halucination Apoaequorin Other Reaction(s): diarrhea Lansoprazole Diarrhea Paroxetine Other Reaction(s): irritable, Unknown Reaction HOME MEDICATIONS: Current Outpatient Medications Medication Instructions atorvastatin (Lipitor) 20 MG tablet Take 1 tablet by mouth once daily FLUoxetine (PROZAC) 20 mg, Oral, 2 times daily levothyroxine (Synthroid, Levoxyl) 100 MCG tablet TAKE 1 TABLET BY MOUTH ONCE DAILY IN THE MORNING BEFORE MEAL(S) losartan (COZAAR) 100 mg, Oral, Every morning Potassium Chloride 20 MEQ/15ML (10%) solution 20 mEq, Oral, Daily triamterene-hydrochlorothiazide (Maxzide-25) 37.5-25 MG tablet 1 tablet, Oral, Every morning PHYSICAL EXAM: Left Knee Exam Tenderness Left knee tenderness location: trace anterior knee tenderness. Range of Motion Extension: 0 Flexion: 120 Tests Varus: negative Valgus: negative Other Sensation: normal Pulse: present Swelling: mild Comments: Suprapatellar bursitis Vitals: There is no height or weight on file to calculate BMI. IMAGING: XR knee 1 or 2 views left Imaging Result: X-rays performed January 09, 2024 Standing AP and LAT of left knee showed surgical position and alignment of prosthetic components without evidence of loosening or wear to the femoral, tibial, or patellar components. The alignment appeared to be anatomic. There was no evidence of accelerated or asymmetric wear to the patellar button or tibial tray. There was no evidence of fracture and/or dislocation. Impression: Stable LT total knee replacement. Carlitos Laird MATE CHIEF-PLATE MAKER ASSESSMENT: ICD-10-CM 1. Primary osteoarthritis of left knee M17.12 XR knee 1 or 2 views left 2. Status post left knee replacement Z96.652 Procedures PLAN: I reviewed xray findings with the patient and discussed treatment options, answered questions. She states that pain is improving but wanted to make sure she did not cause any damage to knee replacement. I reviewed with patient that there was no signs of fracture or loosening on xray. She will continue with conservative treatment measures and call with any worsening symptoms. Questions answered in laymen terms at the bedside. The diagnosis, home exercise plan and any ongoing restrictions/ recommendations reviewed. If unable to be reached in office, I recommend evaluation at nearest Emergency Room if any symptoms worsened or new symptoms develop for requiring urgent evaluation. Carlitos Laird MATE CHIEF-PLATE [employer]KER documented in this encounter [facility] 12-29-2023 Telephone encount er Note Sent. [facility] 12-29-2023 Miscellaneous Notes Formattin g of this note might be different from the original. Sent. Pt called she is requesting the potassium be changed from the pill form to the kind she can add to her drink states she had that form of potassium in past and is having a hard time swalling the potassium pill-- [email or web address] documented in this encounter [facility] 12-28-2023 Telephone encount er Note Pt called she is requesting the potassium be changed from the pill form to the kind she can add to her drink states she had that form of potassium in past and is having a hard time swalling the potassium pill-- [facility] 12-06-2023 History of Presen t illness Narrative Images from the original note were not included. HPI Follow-up Additional comments: Otitis media/ear congestion recent visits for this 11/21/23 given amoxil 11/28/23 given medrol dose pack Last edited by Mone Chirinos LPN on 12/06/2023 9:16 AM. Subjective Patient ID: Chelsy Graves is a 78 y.o. female who presents for Follow-up (Otitis media/ear congestion recent visits for this 11/21/23 given amoxil 11/28/23 given medrol dose pack). Pt states she is still having pressure in her ears and feeling congested she has humming all the time in her ears ENT was unable to see her until Finished all meds rx'd for this Pt also states she was advised to increase her water intake --she has but now state she is up having to urinate more throughout the night Current Outpatient Medications on File Prior to Visit Medication Sig Dispense Refill atorvastatin (Lipitor) 20 MG tablet Take 1 tablet by mouth once daily 100 tablet 3 FLUoxetine (PROzac) 20 MG capsule Take 1 capsule by mouth twice daily 200 capsule 3 levothyroxine (Synthroid, Levoxyl) 100 MCG tablet TAKE 1 TABLET BY MOUTH IN THE MORNING BEFORE MEAL(S) 90 tablet 0 losartan (Cozaar) 100 MG tablet TAKE 1 TABLET BY MOUTH IN THE MORNING 100 tablet 3 triamterene-hydrochlorothiazide (Maxzide-25) 37.5-25 MG tablet TAKE 1 TABLET BY MOUTH IN THE MORNING 100 tablet 3 [] meclizine (Antivert) 25 MG tablet Take 1 tablet (25 mg) by mouth 3 (three) times a day as needed for dizziness for up to 10 days 30 tablet 0 potassium chloride CR (Klor-Con M10) 10 MEQ ER tablet Take 1 tablet (10 mEq) by mouth Daily Do not crush or chew. 90 tablet 3 [DISCONTINUED] methylPREDNISolone (Medrol Dospak) 4 MG tablets Follow schedule on package instructions 21 tablet 0 No current facility-administered medications on file prior to visit. I have reviewed and reconciled the history and medication list with the patient today. Allergies Allergen Reactions Oxycodone-Acetaminophen GI intolerance and Hallucinations Acetaminophen Other Reaction(s): halucination Apoaequorin Other Reaction(s): diarrhea Lansoprazole Diarrhea Paroxetine Other Reaction(s): irritable, Unknown Reaction Social History Tobacco Use Smoking status: Former Current packs/day: 0.50 Average packs/day: 0.5 packs/day for 10.0 years (5.0 ttl pk-yrs) Types: Cigarettes Smokeless tobacco: Never Substance Use Topics Alcohol use: Never Family History Problem Relation Name Age of Onset Hypertension Mother Cancer Father Past Medical History: Diagnosis Date Allergic rhinitis Allergies Arthritis Depression (CMS/HCC) Depressive disorder (CMS/HCC) Disorder of bone and cartilage Diverticulosis of colon HTN (hypertension) (CMS/HCC) Hypercholesterolemia (CMS/HCC) Hypothyroidism, unspecified (CMS/HCC) IBS (irritable bowel syndrome) Influenza A Leukocytopenia Mixed hyperlipidemia (CMS/HCC) Osteopenia Peptic ulcer disease Sinus infection Thyroid disease (CMS/HCC) Vitamin D deficiency Xanthelasma of eyelid Past Surgical History: Procedure Laterality Date CATARACT EXTRACTION, BILATERAL 2019 COLONOSCOPY 2010 TOTAL KNEE ARTHROPLASTY Bilateral 2017 TOTAL KNEE ARTHROPLASTY Left 11/17/2021 Visit Vitals Ht 5' 3.5 BMI 25.63 kg/m Smoking Status Former BSA 1.73 m Review of Systems Objective Physical Exam Vitals reviewed. Constitutional: Appearance: Normal appearance. HENT: Head: Normocephalic. Right Ear: No middle ear effusion. Left Ear: No middle ear effusion. Tympanic membrane is bulging. Nose: Mucosal edema, congestion and rhinorrhea present. Mouth/Throat: Mouth: Mucous membranes are moist. Pharynx: Oropharynx is clear. No posterior oropharyngeal erythema.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 05/19/23 Photo Equipment Technician Relationship Specialty Start Date End Date David Boles MD [address] [facility] [address] [place] [address] PCP - General Internal Medicine 07/26/22 David Boles MD [address] [facility] [address] [place] [address] PCP - ACO Reach 05/19/23 Photo Equipment Technician Relationship Specialty Start Date End Date David Boles MD [address] [facility] [address] [place] [address] PCP - General Internal Medicine 07/26/22 David Boles MD [address] [facility] [address] [place] [address] PCP - ACO Reach 05/19/23 Photo Equipment Technician Relationship Specialty Start Date End Date David Boles MD [address] [facility] [address] [place] [address] PCP - General Internal Medicine 07/26/22 David Boles MD [address] [facility] [address] [place] [address] PCP - ACO Reach 05/19/23 Photo Equipment Technician Relationship Specialty Start Date End Date David Boles MD [address] [facility] [address] [place] [address] PCP - General Internal Medicine 07/26/22 David Boles MD [address] [facility] [address] [place] [address] PCP - ACO Reach 05/19/23 Photo Equipment Technician Relationship Specialty Start Date End Date David Boles MD [address] [facility] [address] [place] [address] PCP - General Internal Medicine 07/26/22 David Boles MD [address] [facility] [address] [place] [address] PCP - ACO Reach 05/19/23 Photo Equipment Technician Relationship Specialty Start Date End Date David Boles MD [address] [facility] [address] [place] [address] PCP - General Internal Medicine 07/26/22 David Boles MD [address] [facility] [address] [place] [address] PCP - ACO Reach 05/19/23 Photo Equipment Technician Relationship Specialty Start Date End Date David Boles MD [address] [facility] [address] [place] [address] PCP - General Internal Medicine 07/26/22 David Boles MD [address] [facility] [address] [place] [address] PCP - ACO Reach 05/19/23 Photo Equipment Technician Relationship Specialty Start Date End Date David Boles MD [address] [facility] [address] [place] [address] PCP - General Internal Medicine 07/26/22 David Boles MD [address] [facility] [address] [place] [address] PCP - ACO Reach 05/19/23 Photo Equipment Technician Relationship Specialty Start Date End Date David Boles MD [address] [facility] [address] [place] [address] PCP - General Internal Medicine 07/26/22 David Boles MD [address] [facility] [address] [place] [address] PCP - ACO Reach 05/19/23 Goals (unrecognized section and content) Goals may be documented in a n alternate section FOR RECORDS PERTAINING TO PATIENTS WHO ARE OR HAVE BEEN ENROLLED IN A CHEMICAL DEPENDENCY/SUBSTANCEABUSE PROGRAM, SOME INFORMATION MAY BE OMITTED. This clinical summary was aggregated from multiple sources. Caution should be exercised in using it in the provision of clinical care. This summary normalizes information from multiple sources, and as a consequence, information in this document may materially change the coding, format and clinical context of patient data. In addition, data may be omitted in some cases. CLINICAL DECISIONS SHOULD BE BASED ON THE PRIMARY CLINICAL RECORDS. [employer] provides no warranty or guarantee of the accuracy or completeness of information in this document.
== END 2024-04-22 09:49 | disposition home or self-care (01) ==
LOC: RAD 09:48
PROVIDERS: PCP Internal Medicine; Visit Provider Physician Assistant
DX: Z00.00 Encounter for general adult medical examination without abnormal findings (principal); M89.9 Disorder of bone, unspecified; M85.89 Other specified disorders of bone density and structure, multiple sites; E28.39 Other primary ovarian failure
CPT/HCPCS: 77080